=== PATIENT | female | born 1950 | race Caucasian/White ===

== ENCOUNTER → 2025-04-25 | Outpatient (CLI) | payer MEDICARE, SELFPAY ==
--- NOTE | 2025-04-25 09:45 | CYSPIN_PTH ---
PATIENT: FABBY ZUNIGA LOC: [facility] U#:[id number] AGE/SX: 75/F ROOM: RE04/25/[address]: Dr. Oc Ely MD : 1950 BED: DIS: 04/25/2025 SPEC #: [id number] RECD: 04/25/25 11:09 STATUS: AMBAR REQ #: [id number] SPARKLE: 04/25/25 09:[address]: Oc Ely DEPT: CYTOLOGY RECD BY: Sergei Lomeli ENTERED: 04/25/25 12:01 SP TYPE: CYSPIN FL OTHR DR: Dr. Phillip Sullivan MD Tissues: A - Thyroid gland, NOS Procedures: Pap Stain (control) Special Stain Group II Diff Quik Stain (control) Cytospin Fluid Cytology Other HEADER OPERATION: Fine needle aspiration of isthmic nodule PRE-OP DIAGNOSIS: Isthmic nodule TISSUE SUBMITTED: A- Isthmic nodule for cytology DIAGNOSIS CYTOLOGY A. Thyroid isthmus, FNA: No malignant cells are identified Benign (consistent with benign follicular nodule) CYTOLOGY STUDY Slides are reviewed. CYTOLOGY GROSS A. Received is 35 ml of pink-cloudy cytolyt with partciles with 4 smears labeled with the patient's name and and designated per the requisition as Isthmic nodule. Submitted for cytology and cytospin. Mr 04/25/2025 CPT: 22963,27727
== END | disposition home or self-care (01) ==
PROVIDERS: PCP Family Medicine; Referring Provider Surgery; Visit Provider Surgery
DX: E04.1 Nontoxic single thyroid nodule (principal)
CPT/HCPCS: 88108; 88161; 88313